=== PATIENT | female | born 1965 | race Caucasian/White ===

== ENCOUNTER 2018-02-27 11:15 | Day surgery (SDC) | payer OTHER, SELFPAY ==
--- NOTE | 2018-02-27 | PATH_ITS ---
[facility] Accession Number: [id number] . 01 Material submitted: . RECTAL POLYP AT 15 CM . 02 Diagnosis: Rectum, Polyp at 15 cm, Biopsy: Colonic mucosa with no significant diagnostic abnormality, consistent with polypoid redundancy. Negative for dysplasia or malignancy. MRV/03/03/2018 . 02 Electronically signed: . Shavon Ambriz MD, Pathologist NPI- [id number] . 01 Gross description: . RECTAL POLYP AT 15 CM: Received in formalin are multiple fragment(s) of de la o, soft tissue measuring 0.2 x 0.1 x 0.1 cm in aggregate submitted entirely in 1 cassette(s) /CKI /CKI . 02 Pathologist provided ICD-10: K62.1 . 02 CPT . 627802 Performed at: 01 [facility] [address] [address], [place], [place] [id number] MD Gumaro Reynoso MD Phone: [phone] Performed at: 02 [facility] [address] [place], [place] [id number] MD Estrada Vargas MD Phone: [phone]
[2018-02-27] MEDS: SODIUM CHLORIDE 0.9% 1,000 ML 200 ML IV (11:50)
[2018-02-27 11:52] VITALS: BP 121/79; PULSE 89; RESP 20; TEMP 36.9; O2SAT 97; BMI 29.0
--- NOTE | 2018-02-27 12:51 | PM.HP.1 ---
History of Present Illness Chief complaint: [id number] Patient History Medical History Chronic back pain (Acute) Chronic constipation (Acute) Fibromyalgia (Acute) History of tobacco abuse (Acute) Hypertension (Acute) Osteoarthritis (Acute) Surgical History History of bilateral tubal ligation (Acute) Status post breast lumpectomy (Acute) Family & Social History Social History: household members spouse Review of Systems Review of Systems All systems reviewed & are unremarkable except as noted in HPI and below Exam Vital Signs (past 8 hours): - 02/27/18 11:52 Temperature 98.4 F Pulse Rate 89 Respiratory Rate 20 Blood Pressure 121/79 H Pulse Oximetry 97 Oxygen Delivery Method Room Air Narrative Exam Narrative: Well-nourished well-developed female in no acute distress. Alert oriented x3. Sclera nonicteric Neck is supple Chest clear to auscultation bilaterally regular rate and rhythm. No murmurs, gallops, rubs. No crackles or wheezes Abdomen soft, nondistended, nontender Extremities show no clubbing, cyanosis, or edema Objective Labs Labs: No recent laboratory radiographic studies review Assessment & Plan Plan: Assessment/Plan Narrative: 53-year-old female requiring colorectal screening by age criteria. She has no family history of colorectal neoplasia nor is she having any current symptoms. Colonoscopy is currently recommended. Technical details of the procedure were discussed. Risks, benefits, alternatives were explained. Risks including but not limited to sedation, aspiration, bleeding, infection, pain, missed lesion, incomplete examination, need for further radiographic studies, colonic perforation, need for major abdominal surgery, and all attendant risks of major surgery were explained in detail. All questions were answered to her satisfaction, and she voiced understanding. Consent was placed on the chart. We will proceed as above.
--- NOTE | 2018-02-27 13:02 | PM.PREOP ---
Pre-operative Note Interval Note Pre-op Check: Yes History & Physical Reviewed by Physician, Yes Exam Performed and Yes History & Physical exam performed today by Physician Changes: No H&P completed within 30 days and has changed as indicated here:: Patient seen and examined today. She requires colorectal screening. Colonoscopy is recommended. History physical examination documented and placed on the chart today. We will proceed as above today. ASA Class (for procedural sedation): II
[2018-02-27] MEDS: MIDAZOLAM 5 MG/5 ML VIAL IV (13:19)
[2018-02-27] MEDS: fentaNYL 250 MCG/5 ML INJ IV (13:20)
--- NOTE | 2018-02-27 13:30 | PM.OP.ENDO ---
Operative Date/Time/Diagnoses Date of procedure: 02/27/18 Time of procedure: 13:30 Pre-op diagnosis: Colorectal screening Post-op diagnosis: other (Rectal polyp) Procedure & Clinicians Study performed: 1. Sedation per surgeon 2. Colonoscopy with cold forceps polypectomy Same procedure as scheduled: Yes Indications: 53-year-old female requiring colorectal screening by age criteria. Colonoscopy is recommended. Surgeon: Jose Grant Procedure Notes SCOAP/Timeout: Yes Procedure in detail: After obtaining informed consent, the patient was brought to the GI suite and placed in the left lateral decubitus position on the examination table. After placement of appropriate monitors, the patient was given incremental doses of Versed and Fentanyl until an appropriate level of sedation was achieved. A time out was held per SCOAP protocol. A digital rectal examination was performed and did not reveal any masses or obstructing lesions. The colonoscope was gently passed into the patient's anus and the entire colon navigated to the level of the cecum with minimal difficulty. Terminal ileum was intubated and noted to be grossly normal. Once in the cecum, the scope was withdrawn being sure to go before and beyond all mucosal folds and prominences and get an excellent examination. The findings are noted above. At the level of the rectal vault, the scope was retroflexed and the internal anal canal was examined. The scope was straightened and air aspirated from the colon. The instrument was removed from the patient's body and the procedure was concluded. The patient was allowed to awaken from sedation without difficulty and taken to the post-anesthesia care unit in good condition. Scope withdrawal time: 10:22 min Sedation minutes: 24 Findings: polyp (Rectal polyp at 15 cm) Specimen(s): other (Rectal polyp) Complications: none Recommendations: Colonscopy in 5 years, High fiber diet and Will call with biopsy results Plan for aftercare: 1. Discharge to home Follow up: as needed Disposition: same day surgery
[2018-02-27 13:35] VITALS: BP 124/85; PULSE 75; RESP 16; TEMP 36.6; O2SAT 98
[2018-02-27 13:55] VITALS: BP 117/81; PULSE 73; RESP 16; TEMP 36.4; O2SAT 98
== END 2018-02-27 13:58 ==
LOC: ENDO 11:20
PROVIDERS: PCP Family Medicine; Visit Provider Surgery
PROC: 0DJD8ZZ Inspection of Lower Intestinal Tract, Via Natural or Artificial Opening Endoscopic (ICD-10-PCS; CPT 45378; principal; 2018-02-27 13:00)
DX: Z12.11 Encounter for screening for malignant neoplasm of colon (principal); K62.1 Rectal polyp
CPT/HCPCS: 45380; 99152; 99153; J2250; J3010

== ENCOUNTER → 2021-02-06 12:07 | Outpatient (CLI) | payer OTHER, SELFPAY ==
[2021-02-06 19:59] LABS: Add Manual Diff / Slide Review NO; Basophils Absolute Auto 100 /uL (0-100); Basophils Percent Auto 0.8 % (0-2); Eosinophils Absolute Auto 100 /uL (0-450); Eosinophils Percent Auto 1.2 % (2-4); Hematocrit 40.6 % (36-46); Hemoglobin 13.5 g/dL (12.0-16.0); Lymphocytes Absolute Auto 2400 /uL (1100-4500); Mean Corpuscular HGB Conc 33.2 % (30-36); Mean Corpuscular Hemoglobin 29.9 PG (26-34); Monocytes Absolute Auto 400 /uL (0-900); Monocytes Percent Auto 5.3 % (3-14); Neutrophils Absolute Auto 4100 /uL (1500-7000); Neutrophils Percent Auto 58.7 % (50-75); Platelet Count 307 X10^3/uL (150-400); Red Blood Cell Count 4.52 X10^6/uL (4.0-5.2); Red Cell Distribution Width 13.7 % (11.6-14.8)
[2021-02-06 20:09] LABS: Alanine Aminotransferase 44 IU/L (<35); Albumin Globulin Ratio 1.4 (1.0-2.8); Alkaline Phosphatase 86 U/L (38-126); Aspartate Aminotransferase 38 IU/L (14-36); BUN Creatinine Ratio 11.6 (6-22); Bilirubin Total 0.6 mg/dL (0.2-1.3); Blood Urea Nitrogen 11 mg/dL (7-17); Calcium 9.4 mg/dL (8.4-10.2); Carbon Dioxide 29 mmol/L (22-32); Chloride 102 mmol/L (98-107); Estimated Glomerular Filt Rate > 60.0 mL/min (>60); Globulin 2.9 g/dL (1.7-4.1); Glucose 86 mg/dL (70-100); HEMOLYSIS < 15 (0-50); Sodium 141 mmol/L (137-145); Total Protein 6.9 g/dL (6.3-8.2)
[2021-02-06 20:34] LABS: TSH w/ Reflex to FT4 2.09 uIU/mL (0.47-4.68)
== END ==
PROVIDERS: PCP Family Medicine; Visit Provider Physician Assistant Medical
DX: F11.90 Opioid use, unspecified, uncomplicated (principal); G47.00 Insomnia, unspecified; M79.7 Fibromyalgia
CPT/HCPCS: 80053; 84443; 85025

== ENCOUNTER → 2021-05-31 08:21 | Outpatient (CLI) | payer OTHER, SELFPAY ==
[2021-05-31 19:19] LABS: Add Manual Diff / Slide Review NO; Basophils Absolute Auto 0 /uL (0-100); Basophils Percent Auto 0.7 % (0-2); Eosinophils Absolute Auto 100 /uL (0-450); Eosinophils Percent Auto 1.9 % (2-4); Hematocrit 40.3 % (36-46); Hemoglobin 13.4 g/dL (12.0-16.0); Lymphocytes Absolute Auto 2000 /uL (1100-4500); Lymphocytes Percent Auto 30.1 % (25-40); Mean Corpuscular HGB Conc 33.2 % (30-36); Mean Corpuscular Hemoglobin 29.8 PG (26-34); Mean Corpuscular Volume 89.7 fL (80-100); Monocytes Absolute Auto 400 /uL (0-900); Monocytes Percent Auto 6.4 % (3-14); Neutrophils Absolute Auto 4000 /uL (1500-7000); Neutrophils Percent Auto 60.9 % (50-75); Platelet Count 325 X10^3/uL (150-400); Red Cell Distribution Width 13.9 % (11.6-14.8); White Blood Cell Count 6.5 X10^3/uL (4.5-11.0)
[2021-05-31 19:26] LABS: Alanine Aminotransferase 39 IU/L (<35); Albumin 4.3 g/dL (3.5-5.0); Albumin Globulin Ratio 1.5 (1.0-2.8); Alkaline Phosphatase 74 U/L (38-126); Aspartate Aminotransferase 37 IU/L (14-36); Bilirubin Total 0.9 mg/dL (0.2-1.3); Bilirubin Unconjugated 0.7 mg/dL (0.0-1.1); Globulin 2.8 g/dL (1.7-4.1); Total Protein 7.1 g/dL (6.3-8.2)
[2021-05-31 19:50] LABS: Gamma Glutamyl Transpeptidase 38 U/L (12-43); HEMOLYSIS 17 (0-50)
== END ==
PROVIDERS: PCP Physician Assistant Medical; Visit Provider Physician Assistant Medical
DX: R63.5 Abnormal weight gain (principal); R74.8 Abnormal levels of other serum enzymes
CPT/HCPCS: 80076; 82977; 85025

== ENCOUNTER → 2021-07-26 08:30 | Outpatient (CLI) | payer OTHER, SELFPAY ==
[2021-07-31 10:29] LABS: Ethyl Glucuronide Screen Negative ng/mL (Cutoff=500)
== END ==
PROVIDERS: PCP Physician Assistant Medical; Visit Provider Physician Assistant Medical
DX: F11.90 Opioid use, unspecified, uncomplicated (principal)
CPT/HCPCS: 80321

== ENCOUNTER → 2021-10-20 11:21 | Outpatient (CLI) | payer OTHER, SELFPAY ==
[2021-10-20 18:54] LABS: Add Manual Diff / Slide Review NO; Basophils Absolute Auto 0 /uL (0-100); Basophils Percent Auto 0.8 % (0-2); Eosinophils Absolute Auto 100 /uL (0-450); Hematocrit 40.6 % (36-46); Hemoglobin 13.8 g/dL (12.0-16.0); Lymphocytes Absolute Auto 2200 /uL (1100-4500); Lymphocytes Percent Auto 34.6 % (25-40); Mean Corpuscular Hemoglobin 30.3 PG (26-34); Mean Corpuscular Volume 89.1 fL (80-100); Monocytes Absolute Auto 300 /uL (0-900); Monocytes Percent Auto 5.2 % (3-14); Neutrophils Absolute Auto 3600 /uL (1500-7000); Neutrophils Percent Auto 57.4 % (50-75); Platelet Count 340 X10^3/uL (150-400); Red Blood Cell Count 4.56 X10^6/uL (4.0-5.2); Red Cell Distribution Width 13.5 % (11.6-14.8); White Blood Cell Count 6.3 X10^3/uL (4.5-11.0)
[2021-10-20 18:56] LABS: Alanine Aminotransferase 37 IU/L (<35); Albumin 4.4 g/dL (3.5-5.0); Albumin Globulin Ratio 1.5 (1.0-2.8); Alkaline Phosphatase 76 U/L (38-126); Aspartate Aminotransferase 34 IU/L (14-36); BUN Creatinine Ratio 17.7 (6-22); Bilirubin Total 0.7 mg/dL (0.2-1.3); Blood Urea Nitrogen 17 mg/dL (7-17); Calcium 9.2 mg/dL (8.4-10.2); Carbon Dioxide 33 mmol/L (22-32); Chloride 98 mmol/L (98-107); Cholesterol 197 mg/dL (140-199); Estimated Glomerular Filt Rate 59.7 mL/min (>60); Gamma Glutamyl Transpeptidase 33 U/L (12-43); Globulin 2.9 g/dL (1.7-4.1); Glucose 108 mg/dL (70-100); HDL Cholesterol 43 mg/dL (40-60); HEMOLYSIS < 15 (0-50); LDL Cholesterol Calculated 130 mg/dL (<100); Sodium 139 mmol/L (137-145); Total Protein 7.3 g/dL (6.3-8.2); Triglycerides 118 mg/dL (35-150)
[2021-10-20 19:15] LABS: Free T3, Triiodothyronine Free 3.67 pg/mL (2.77-5.27)
[2021-10-20 19:29] LABS: TSH w/ Reflex to FT4 1.61 uIU/mL (0.47-4.68)
== END ==
PROVIDERS: PCP Physician Assistant Medical; Visit Provider Physician Assistant Medical
DX: G47.00 Insomnia, unspecified (principal); R63.5 Abnormal weight gain; R74.8 Abnormal levels of other serum enzymes
CPT/HCPCS: 80053; 80061; 82977; 84443; 84481; 85025

== ENCOUNTER → 2022-03-15 09:31 | Outpatient (CLI) | payer OTHER, SELFPAY ==
[2022-03-15 20:09] LABS: Hemoglobin A1C% w Est Avg Glu 5.5 % (4.0-6.0)
[2022-03-15 20:11] LABS: Alanine Aminotransferase 34 IU/L (<35); Albumin Globulin Ratio 1.2 (1.0-2.8); Alkaline Phosphatase 74 U/L (38-126); Aspartate Aminotransferase 48 IU/L (14-36); BUN Creatinine Ratio 16.5 (6-22); Bilirubin Total 0.6 mg/dL (0.2-1.3); Blood Urea Nitrogen 16 mg/dL (7-17); C-Reactive Protein Quant 2.7 mg/dL (<1.0); Calcium 8.6 mg/dL (8.4-10.2); Carbon Dioxide 34 mmol/L (22-32); Chloride 97 mmol/L (98-107); Estimated Glomerular Filt Rate > 60 mL/min (>60); Globulin 3.3 g/dL (1.7-4.1); Glucose 96 mg/dL (70-100); HEMOLYSIS < 15 (0-50); Sodium 138 mmol/L (137-145); Total Protein 7.3 g/dL (6.3-8.2)
[2022-03-15 20:14] LABS: Erythrocyte Sedimentation Rate 24 MM/HR (0-20)
[2022-03-15 20:17] LABS: Add Manual Diff / Slide Review NO; Basophils Absolute Auto 100 /uL (0-100); Basophils Percent Auto 1.7 % (0-2); Eosinophils Absolute Auto 200 /uL (0-450); Eosinophils Percent Auto 3.1 % (2-4); Hematocrit 37.5 % (36-46); Hemoglobin 12.9 g/dL (12.0-16.0); Lymphocytes Absolute Auto 2600 /uL (1100-4500); Mean Corpuscular HGB Conc 34.3 % (30-36); Mean Corpuscular Hemoglobin 30.6 PG (26-34); Mean Corpuscular Volume 89.1 fL (80-100); Monocytes Absolute Auto 300 /uL (0-900); Monocytes Percent Auto 5.7 % (3-14); Neutrophils Absolute Auto 2800 /uL (1500-7000); Neutrophils Percent Auto 46.5 % (50-75); Platelet Count 323 X10^3/uL (150-400); Red Blood Cell Count 4.21 X10^6/uL (4.0-5.2); Red Cell Distribution Width 13.3 % (11.6-14.8)
[2022-03-15 20:32] LABS: TSH w/ Reflex to FT4 1.95 uIU/mL (0.47-4.68)
== END ==
PROVIDERS: PCP Physician Assistant Medical; Visit Provider Physician Assistant Medical
DX: E87.6 Hypokalemia (principal); F11.90 Opioid use, unspecified, uncomplicated; G47.00 Insomnia, unspecified; G89.29 Other chronic pain; M54.40 Lumbago with sciatica, unspecified side; M79.7 Fibromyalgia; R63.5 Abnormal weight gain; R73.9 Hyperglycemia, unspecified; R74.8 Abnormal levels of other serum enzymes; R94.4 Abnormal results of kidney function studies
CPT/HCPCS: 80053; 83036; 84443; 85025; 85651; 86140

== ENCOUNTER → 2022-05-15 08:42 | Outpatient (CLI) | payer OTHER, SELFPAY ==
--- NOTE | 2022-05-15 | DI.US.S_ITS ---
PROCEDURE: US ABDOMEN COMPLETE INDICATIONS: Abnormal results of liver function studies TECHNIQUE: Real-time scanning was performed of the abdominal and retroperitoneal organs, with image documentation. COMPARISON: None. FINDINGS: Liver: Severe hepatic steatosis. No obvious hepatic mass. Gallbladder: Large gallstone in the gallbladder neck measuring 3.5 centimeters. No abnormal gallbladder wall thickening or pericholecystic fluid. The gallbladder does not appear abnormally distended. Biliary ducts: Normal diameter. Pancreas: Obscured by bowel gas. Spleen: Spleen is normal in size and homogeneous in echotexture. Kidneys: Normal size and appearance. Aorta: Visualized aorta is normal in caliber at less than 3 cm. Iliacs: Proximal common iliac arteries are normal in caliber at less than 2.5 cm. IVC: Intrahepatic inferior vena cava is patent. Miscellaneous: No free abdominal fluid. IMPRESSION: Large gallstone in the proximal gallbladder body near the neck measuring 3.5 centimeters. There is no abnormal distention of the gallbladder to serve as definitive evidence of obstruction. No findings of cholecystitis. Correlate with other clinical signs/symptoms of biliary colic. Dictated by: Car Mendez M.D. on 05/15/2022 at 14:06 Approved by: Car Mendez M.D. on 05/15/2022 at 14:08
[2022-05-15 12:56] LABS: Alanine Aminotransferase 36 IU/L (<35); Albumin Globulin Ratio 1.3 (1.0-2.8); Alkaline Phosphatase 81 U/L (38-126); Aspartate Aminotransferase 31 IU/L (14-36); Bilirubin Total 0.8 mg/dL (0.2-1.3); Bilirubin Unconjugated 0.8 mg/dL (0.0-1.1); Cholesterol 201 mg/dL (140-199); Globulin 3.2 g/dL (1.7-4.1); HDL Cholesterol 30 mg/dL (40-60); HEMOLYSIS < 15 (0-50); LDL Cholesterol Calculated 136 mg/dL (<100); Total Protein 7.2 g/dL (6.3-8.2); Triglycerides 175 mg/dL (35-150)
[2022-05-15 13:00] LABS: Hemoglobin A1C% w Est Avg Glu 5.6 % (4.0-6.0)
[2022-05-15 13:08] LABS: Iron 115 ug/dL (37-170)
[2022-05-15 13:19] LABS: Total Iron Binding Capacity 270 ug/dL (265-497); Transferrin 194 mg/dL (206-381)
[2022-05-15 13:32] LABS: Ferritin 70 ng/mL (11-264)
[2022-05-16 03:32] LABS: Hepatitis B Surf AB Quant <3.1 mIU/mL (Immunity>9.9)
[2022-05-16 09:36] LABS: Alpha 1 Anti Trypsin 156 mg/dL (101-187)
[2022-05-17 16:11] LABS: Hepatitis B Surface Antigen NEGATIVE s/c (NEGATIVE)
[2022-05-17 16:34] LABS: Hep C Virus Ab w/Reflex Quant NEGATIVE s/c (NEGATIVE)
[2022-05-17 17:31] LABS: ANA Screen, IFA Positive (.)
[2022-05-18 11:38] LABS: Smooth Muscle Antibody 2 Units (0-19)
== END ==
PROVIDERS: PCP Physician Assistant Medical; Referring Provider Physician Assistant; Visit Provider Physician Assistant
DX: R94.5 Abnormal results of liver function studies (principal); K80.20 Calculus of gallbladder without cholecystitis without obstruction
CPT/HCPCS: 36415; 76700; 80061; 80076; 82103; 82728; 83036; 83516; 83540; 83550; 84466; 86038; 86706; 86803; 87340

== ENCOUNTER → 2022-09-04 12:50 | Outpatient (CLI) | payer OTHER, SELFPAY ==
--- NOTE | 2022-09-04 12:52 | DI.MG.S_ITS ---
BILATERAL DIGITAL SCREENING MAMMOGRAM 3D/2D WITH CAD WITH AUGMENTATION: 09/04/2022 CLINICAL: Routine screening. Family history of breast cancer. Baseline exam. No prior exams were available for comparison. There are scattered areas of fibroglandular density in both breasts (category b / 25%-50% glandular tissue). Current study was also evaluated with a Computer Aided Detection (CAD) system. Bilateral breast implants are present. There are benign calcifications in both breasts. No significant masses, calcifications, or other findings are seen in either breast. IMPRESSION: BENIGN There is no mammographic evidence of malignancy. A 1 year screening mammogram is recommended. Based on the Tyrer Cuzick model (a risk assessment model) the patient's lifetime risk is 10.9% and her 10 year risk is 4.3%. According to the ACR, ACS, and NCCN guidelines, an annual breast MRI exam along with mammogram is recommended if the patient's lifetime risk is 20% or greater. This exam was interpreted at Station ID: [id number]. NOTE: For mammograms, a report in lay terms will be sent to the patient. Approximately 15% of breast malignancies will not be visualized mammographically. In the management of a palpable breast mass, a negative mammogram must not discourage biopsy of a clinically suspicious lesion. Electronically Signed By: Darren rg/darin:09/04/2022 14:05:54 letter sent: Normal Exam ACR BI-RADS Category 2: Benign Finding(s) 3342F
== END ==
PROVIDERS: PCP Physician Assistant Medical; Referring Provider Physician Assistant Medical; Visit Provider Physician Assistant Medical
DX: Z12.31 Encounter for screening mammogram for malignant neoplasm of breast (principal); Z80.3 Family history of malignant neoplasm of breast
CPT/HCPCS: 77063; 77067